=== PATIENT | male | born 1955 | race Hispanic/Latino ===

== ENCOUNTER 2018-01-11 13:37 | Outpatient (CLI) | payer BC ==
--- NOTE | 2018-01-11 17:22 | XRay Report ---
FINAL REPORT EXAM: XR HIP 2-3V RT HISTORY: RIGHT HIP PAIN TECHNIQUE: Right hip and AP pelvis PRIORS: None. FINDINGS: No fracture identified. No dislocation seen. Femoral head maintains a normal contour. There is bilateral joint space narrowing at the hips greater on the right with some scalp chondral sclerotic acetabular changes. 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
== END 2018-01-11 13:38 | disposition home or self-care (01) ==
LOC: SPVIMAG 13:37
PROVIDERS: ATTEND Orthopaedic Surgery Sports Medicine
DX: M16.0 Bilateral primary osteoarthritis of hip (principal)